=== PATIENT | female | born 1940 | race Caucasian/White ===

== ENCOUNTER 2017-01-13 14:12 | Outpatient (CLI) | payer MEDICARE, OTHER ==
[2017-01-15 11:13] LABS: *OCCULT BLOOD STOOL NEGATIVE (NEGATIVE)
[2017-01-15 11:14] LABS: *OCCULT BLOOD STOOL NEGATIVE (NEGATIVE)
== END 2017-01-13 23:59 | disposition home or self-care (01) ==
LOC: LAB 14:12
PROVIDERS: ATTEND Internal Medicine
DX: Z00.01 Encounter for general adult medical examination with abnormal findings (principal)
CPT/HCPCS: 86625; 87046; 89055